=== PATIENT | male | born 1945 | race Caucasian/White ===

== ENCOUNTER 2023-03-17 12:26 | Emergency (ER) | payer OTHER ==
[~2023-03-17] VITALS: Ht 177.8 cm; Wt 77.3 kg
[~2023-03-17 12:26] MED LIST: AMLO1TAB23 PO; ATOR10TA PO; BENA40TA70 PO; CHLO25TA2 PO
[2023-03-17] MEDS ORDERED: BENAZEPRIL HCL 10 MG TAB PO ONE (13:00)
[2023-03-17 13:35] LABS: Basophils # (auto) 0 10 ^3/uL (0-0.2); Basophils % (auto) 0.7 % (0.0-2.0); Eosinophils # (auto) 0 10 ^3/uL (0-0.8); Eosinophils % (auto) 0.5 % (0.0-7.0); Hematocrit 42.8 % (41.0-53.0); Hemoglobin 14.1 g/dL (13.5-17.5); Lymphocytes # (auto) 1.6 10 ^3/uL (0.4-5.4); Lymphocytes % (auto) 22.6 % (10.0-50.0); Mean Corpuscular Hemoglobin 32.3 pg (28.0-32.0); Mean Corpuscular Volume 97.6 fL (80.0-100.0); Monocytes # (auto) 0.7 10 ^3/uL (0-1.3); Monocytes % (auto) 9.3 % (0.0-12.0); Neutrophils # (auto) 4.8 10 ^3/uL (1.6-8.6); Neutrophils % (auto) 66.9 % (37.0-80.0); Nucleated Red Blood Cells % 0.2 %; Red Blood Cells 4.38 10^6/uL (4.5-5.90); Red Cell Distribution Width 13.8 % (11.8-14.3); White Blood Cell 7.2 10^3/uL (4.4-10.8)
[2023-03-17 13:48] LABS: INR 1.53 (0.9-1.15); Prothrombin Time 15.6 sec (9.3-11.8)
[2023-03-17 14:10] VITALS: PULSE 84; RESP 24; TEMP 98.2; O2SAT 97
[2023-03-17] MEDS ORDERED: CEPH250C PO (14:10)
[2023-03-17 14:30] VITALS: BP 118/84; PULSE 89; RESP 16; O2SAT 89
== END 2023-03-17 14:35 | disposition home or self-care (01) ==
LOC: ER 12:26
DX: R04.0 Epistaxis (principal); I10 Essential (primary) hypertension; E11.9 Type 2 diabetes mellitus without complications; E78.5 Hyperlipidemia, unspecified; Z79.899 Other long term (current) drug therapy
CPT/HCPCS: 30901; 36415; 85025; 85610